=== PATIENT | female | born 1985 | race Caucasian/White ===

== ENCOUNTER 2020-10-17 06:54 | Outpatient (NON) | payer OTHER, SELFPAY ==
[2020-10-17 22:15] LABS: SARS-CoV-2 RNA PCR Positive
== END 2020-10-17 06:55 ==
LOC: ANHCOVIDDT 06:59
PROVIDERS: PCP Family Medicine; Visit Provider Physician Assistant
DX: U07.1 COVID-19 (principal)
CPT/HCPCS: C9803; U0003; U0005

== ENCOUNTER → 2020-12-26 13:11 | Outpatient (CLI) | payer OTHER, SELFPAY ==
--- NOTE | ~2020-12-26 | CT_ITS ---
EXAMINATION: CT abdomen pelvis wo/w con DATE: 12/26/2020 14:25 INDICATION: Microscopic hematuria TECHNIQUE: Computed tomography (CT) of the abdomen and pelvis was performed without and subsequently with 130 cc Omnipaque 350 intravenous contrast. Automated exposure control and iterative reconstructi on technique were employed. Exam dose: 1895.32 mGy-cm total exam DLP. COMPARISON: None. FINDINGS: Minimal atelectasis in the dependent lower lobes. Normal heart size. No pericardial or pleural effusion. The liver, gallbladder, bile ducts, pancreas, pancreatic duct, spleen, and adrenal glands and kidneys are unremarkable. No urinary tract calculus or hydroureteronephrosis. The urinary bladder appears no rmal. Uterus and adnexal areas are unremarkable. Normal appendix. No bowel obstruction, bowel wall thickening, pneumatosis or intraperitoneal free air . Normal caliber of the abdominal aorta. No intraperitoneal or retroperitoneal or pelvic mass lesion or adenopathy or ascites. Included skeletal structures are unremarkable. IMPRESSION: Negative examination; no urinary tract calculus, hydroureteronephrosis or urinary tract mass lesion is detected Reviewed, dictated and finalized at [facility]. Reviewed, dictated and finalized at [facility]. IMPRESSION: Negative examination; no urinary tract calculus, hydroureteronephr osis or urinary tract mass lesion is detected
--- NOTE | ~2020-12-26 | XR_ITS ---
XR abdomen/kub 1V DATE: 12/26/2020 14:26 INDICATION: Microscopic hematuria TECHNIQUE: AP projection 2 views COMPARISON: 12/26/2020 CT abdomen pelvis FINDINGS: There is a prominent amount of fecal material within the colon but no evidence of bowel obs truction. The psoas shadows are intact. No visceromegaly is evident. No abnormal calcification. Inclu ded skeletal structures are unremarkable. IMPRESSION: Prominent amount fecal material in the colon; no bowel obstruction No urinary tract calcification is noted Reviewed, dictated and finalized at [facility]. Reviewed, dictated and finalized at [facility].
[2020-12-26 14:00] LABS: Estimated Glomerular Filt Rate > 60
== END ==
PROVIDERS: PCP Family Medicine; Visit Provider Urology
DX: R31.29 Other microscopic hematuria (principal)
CPT/HCPCS: 74018; 74178; Q9967

== ENCOUNTER 2024-04-15 13:24 | Emergency (ER) | payer OTHER, SELFPAY ==
--- NOTE | ~2024-04-15 | XR_ITS ---
EXAMINATION: XR chest 2V 04/15/2024 13:55 INDICATION: Left-sided chest pain PROCEDURE: 2 view chest COMPARISON: No prior studies for comparison. FINDINGS: The lungs are clear. The cardiomediastinal silhouette is within normal limits. There are no pleural effusions. There is no pneumothorax suspected. IMPRESSION: 1: NO ACUTE CARDIOPULMONARY DISEASE. Reviewed, dictated and finalized at location [facility].
--- NOTE | 2024-04-15 13:25 | ECG_ITS ---
Test Date: 2024-04-15 13:37:50 Measurements Intervals [place] Rate: 106 P: 44 SC: 154 QRS: -5 QRSD: 100 T: 33 QT: 344 QTc: 457 Interpretive Statements SINUS TACHYCARDIA POSSIBLE LEFT ATRIAL ENLARGEMENT DELAYED PRECORDIAL R/S TRANSITION BORDERLINE ST-T WAVE ABNORMALITY- DIFFUSE LEADS BORDERLINE ECG No previous ECG available for comparison Electronically Signed On 04-15-2024 14:02:59 CDT by William Tello D.O.
[2024-04-15 13:36] VITALS: BP 154/100; PULSE 115; RESP 18; TEMP 36.6; O2SAT 98
[2024-04-15 14:30] LABS: Basophils Absolute Auto 0.1 K/mm3 (0.0-0.1); Basophils Percent Auto 0.5 % (0.2-1.2); Eosinophils Absolute Auto 0.1 K/mm3 (0-0.3); Eosinophils Percent Auto 0.4 % (0-4.4); Hemoglobin 13.3 g/dL (12.0-15.0); Immature Granulocyte Absolute 0.03 K/mm3 (0.00-0.031); Immature Granulocyte Percent A 0.3 % (0-0.5); Lymphocytes Absolute Auto 1.54 K/mm3 (0.9-3.2); Lymphocytes Percent Auto 12.9 % (18.3-44.2); Mean Corpuscular HGB Conc 34.1 g/dl (32-36); Mean Corpuscular Hemoglobin 30.6 pg (26-34); Mean Corpuscular Volume 89.9 fl (80-100); Mean Platelet Volume 9.2 fl (7.4-10.4); Monocytes Absolute Auto 0.7 K/mm3 (0.1-0.6); Monocytes Percent Auto 6.2 % (2.6-8.5); Neutrophils Absolute Auto 9.6 K/mm3 (1.3-6.7); Neutrophils Percent Auto 79.7 % (45.5-73.1); Platelet Count Result 333 k/mm3 (150-375); Red Blood Count 4.34 M/mm3 (4.2-5.4); Red Cell Distribution Width 13.7 % (11.5-14.5)
[2024-04-15 14:40] LABS: INR 0.9; Prothrombin Time 12.4 Seconds (11.1-14.7)
[2024-04-15 14:41] LABS: Partial Thromboplastin Time 26.9 Seconds (22.3-36.8)
[2024-04-15 14:45] LABS: Alanine Aminotransferase 38 U/L (6-35); Albumin Level 4.8 g/dL (3.5-5.1); Alkaline Phosphatase 89 U/L (38-126); Anion Gap 15 mmol/L (4-12); Aspartate Amino Transferase 25 U/L (14-36); Bilirubin,Total 0.5 mg/dL (0.2-1.3); Blood Urea Nitrogen 12 mg/dL (7-17); Calcium 9.8 mg/dL (8.4-10.2); Carbon Dioxide 22 mmol/L (22-30); Chloride 102 mmol/L (98-107); Estimated CRCL calculation 115 ml/min; Estimated Glomerular Filt Rate > 60; Glucose 107 mg/dL (65-110); Lipase 58 U/L (23-300); Potassium 3.9 mmol/L (3.4-5.0); Sodium 139 mmol/L (137-145)
[2024-04-15 14:56] LABS: Troponin I < 0.012 ng/mL (0.000-0.034)
--- NOTE | 2024-04-15 16:19 | ED.GENADULT ---
HPI - General Adult General Chief complaint: Chest Pain <Paola Huang STRICKLER ATTENDANT - Last Filed: 04/15/24 16:23> Stated complaint: chest pain since yesterday <Paola Huang STRICKLER ATTENDANT - Last Filed: 04/15/24 16:23> Time Seen by Provider: 04/15/24 16:19 <Paola Angelo February STRICKLER ATTENDANT - Last Filed: 04/15/24 16:23> Focused HPI: Freida Graves is a 39 y/o female who presents with having left sided tightness in her chest that started last night that was worse with laying down and the pain went through and through to her back on the left side, she had to sleep sitting up and when she got up this AM the pain was still there. She states pain is worse with breathing and started to take short breaths. Mom had a heart attack two years ago and has a hx of pericarditis. GENERAL: Well-appearing, well-nourished, and in no acute distress. HEAD: Normocephalic, atraumatic. CHEST: Clear to auscultation. ?No respiratory distress. HEART: Regular rate and rhythm.? NEURO: ?Alert and oriented x3. Patient screened in triage and initial orders placed.? ?Additional care and disposition to be based upon?diagnostic testing and treatment. <Paola Huang, STRICKLER ATTENDANT - Last Filed: 04/15/24 16:23> History of Present Illness HPI narrative: 39-year-old female presenting with left-sided chest pain. Patient states that she used to have these episodes of left-sided chest pain and squeezing that would last for a few seconds. States that these episodes stopped about 7 years ago when she stops smoking. States that she had a few cigarettes earlier this week when she was out with friends and then yesterday she developed a similar left-sided chest tightness that radiates into her upper back. States that it is worse with deep breathing. She denies leg swelling, palpitations, cough, shortness of breath, syncope. No recent surgeries, immobilization. No exogenous hormone use. No fevers, abdominal pain, vomiting. States that she currently feels improved. <Suzanne Alonzo MD - Last Filed: 04/25/24 12:58> Related Data Home medications: Home Medications Medication Instructions Recorded Confirmed ascorbic acid (vitamin C) 1,000 mg 1 g PO DAILY 01/18/21 03/21/24 tablet cholecalciferol (vitamin D3) 25 25 mcg PO DAILY 03/21/24 03/21/24 mcg (1,000 unit) tablet <Paola Huang STRICKLER ATTENDANT - Last Filed: 04/15/24 16:23> Allergies/adverse reactions: Allergies Allergy/AdvReac Type Severity Reaction Status Date / Time No Known Allergies Allergy Verified 03/21/24 15:22 <Paola Huang, STRICKLER ATTENDANT - Last Filed: 04/15/24 16:23> Review of Systems Review of Systems: All systems reviewed & are unremarkable except as noted in HPI and below <Suzanne Alonzo MD - Last Filed: 04/25/24 12:58> [facility] Past Medical History Medical History: Medical History Former smoker Labial cyst Well woman exam with routine gynecological exam Wellness examination <Paola Huang STRICKLER ATTENDANT - Last Filed: 04/15/24 16:23> Surgical History Surgical History: Surgical History S/P eye surgery [place] teeth removed <Paola Huang STRICKLER ATTENDANT - Last Filed: 04/15/24 16:23> Family History Family History: Family History Father Hypertension Family history of malignant neoplasm of urinary bladder Sibling Hypertension <Paola Huang STRICKLER ATTENDANT - Last Filed: 04/15/24 16:23> Social History Social History: Social History Social History: Single Smoking packs per day: 1 Smoking cigarettes per day: 20.0 Smoking status: Former smoker Tobacco type: cigarettes Second hand tobacco smoke exposure: No Smoking end date: 10/05/15 Alcohol intake: current Alcohol use details: Occasionally Substance use: never Substance use type: does not use
[2024-04-15 17:44] VITALS: PULSE 114
[2024-04-15 17:46] VITALS: BP 150/103; PULSE 108; RESP 13; O2SAT 96
--- NOTE | 2024-04-15 17:46 | ECG_ITS ---
Test Date: 2024-04-15 18:08:34 Measurements Intervals [place] Rate: 94 P: 44 [place]: 154 QRS: -17 QRSD: 101 T: 4 QT: 370 QTc: 465 Interpretive Statements SINUS RHYTHM BORDERLINE R WAVE PROGRESSION, ANTERIOR LEADS BORDERLINE T WAVE ABNORMALITY- ANTEROLAT/INF LEADS BORDERLINE ECG Compared to ECG 04/15/2024 13:37:50 HEART RATE HAS DECREASED Electronically Signed On 04-15-2024 19:29:58 CDT by William Tello D.O.
[2024-04-15 18:30] LABS: D Dimer 0.34 ug/mL (<0.48)
[2024-04-15 18:31] VITALS: BP 141/85; PULSE 102; O2SAT 92
[2024-04-15 18:46] VITALS: BP 140/89; PULSE 97; RESP 13; O2SAT 92
[2024-04-15 18:49] LABS: Troponin I < 0.012 ng/mL (0.000-0.034)
[2024-04-15 19:01] VITALS: BP 139/83; PULSE 96; RESP 19; O2SAT 92
== END 2024-04-15 19:14 | disposition home or self-care (01) ==
PROVIDERS: Emergency Medicine; Nurse Practitioner Family; Emergency Provider Emergency Medicine; PCP Family Medicine
DX: R07.89 Other chest pain (principal); Z87.891 Personal history of nicotine dependence; R00.0 Tachycardia, unspecified; R94.31 Abnormal electrocardiogram [ECG] [EKG]
CPT/HCPCS: 36415; 71046; 80053; 83690; 84484; 85025; 85380; 85610; 85730; 93005; 99284